=== PATIENT | female | born 1970 | race Caucasian/White ===

== ENCOUNTER 2023-12-14 12:41 | Emergency (ER) | payer MEDICAID ==
[2023-12-14] MEDS ORDERED: ONDANSETRON HCl 4 MG/2 ML SDV IV ONE (12:55)
[2023-12-14] MEDS ORDERED: SODIUM CHLORIDE 0.9% 1,000 ML IV ONE (12:55)
[2023-12-14] MEDS ORDERED: MORPHINE SULFATE 4 MG/ML VIAL IV STA (13:00)
[2023-12-14] MEDS ORDERED: FAMOTIDINE 10MG/ML 2ML SDV IV ONE (13:10)
[2023-12-14] MEDS ORDERED: Pantoprazole Sodium 40 MG VIAL (Protonix) IV ONE (13:10)
[2023-12-14 13:24] LABS: BASO% 0.1 % (0-3); EOS% 0.5 % (0-8); HEMATOCRIT 41.7 % (37.0-47.0); HEMOGLOBIN 13.4 g/dl (12.0-16.0); IMMATURE GRANULOCYTES 0.1 % (0.0-5.0); LYMPH% 7.6 % (15-41); MEAN CELL VOLUME 96.8 fL CALC (80.0-100.0); MEAN CORPUSCULAR HGB 31.1 pG CALC (26.0-32.0); MEAN CORPUSCULAR HGB CONC 32.1 g/dL CAL (32.0-36.0); MONO% 2.8 % (2-13); NEUT# 7.68 thou/uL (2.00-7.15); NEUT% 88.9 % (42-76); RED BLOOD COUNT 4.31 mill/uL (4.20-5.60); RED CELL DISTRI WIDTH 13.4 % (11.5-15.5)
[2023-12-14 13:37] LABS: ALBUMIN 3.8 g/dL (3.2-5.0); ALKALINE PHOSPHATASE 62 u/l (38-126); ANION GAP 10 (6-22 (CALC)); BILIRUBIN, TOTAL 0.7 mg/dL (0.02-1.3); BUN 16 mg/dL (7-17); BUN/CREATININE RATIO 16 (12-20 (CALC)); CARBON DIOXIDE 22 mmol/l (22-30); CHLORIDE 113 mmol/l (95-108); ESTIMATED GFR 68 ML/MIN (>=90 (CALC)); LIPASE 59 u/l (23-300); POTASSIUM 3.7 mmol/l (3.5-5.1); SGOT/AST 26 u/l (14-36); SODIUM 141 mmol/l (137-146); TOTAL PROTEIN 6.7 g/dL (6.3-8.2)
[2023-12-14 13:54] VITALS: BP 152/93
[2023-12-14 14:01] VITALS: BP 138/75
[2023-12-14 14:53] LABS: URINE BILIRUBIN - DIPSTICK Negative (NEGATIVE); URINE BLOOD DIPSTICK Negative (NEGATIVE); URINE COLOR Yellow; URINE GLUCOSE - DIPSTICK Negative (NEGATIVE); URINE KETONE Trace mg/dL (NEGATIVE); URINE LEUK ESTERASE Negative (NEGATIVE); URINE NITRITE - DIPSTICK Negative (Negative); URINE PH 5.5 (4.5-8.0); URINE PROTEIN - DIPSTICK Negative (NEG-TRACE); URINE SPECIFIC GRAVITY 1.025; URINE UROBILINOGEN - DIPSTICK 0.2 E.U./dL (0.2)
[2023-12-14 15:12] VITALS: BP 148/102
[2023-12-14 15:15] VITALS: BP 148/77
[2023-12-14] MEDS ORDERED: PIPERACILLIN Sodium-Tazobactam 3.375 GM in SODIUM CHLORIDE 0.9% 100 ML IV STA (15:50)
[2023-12-14] MEDS ORDERED: AMOX/K CLAV875 M1 PO (15:54)
[2023-12-14] MEDS ORDERED: PROTONIX40 M2 PO (15:54)
[2023-12-14] MEDS ORDERED: ZOFRAN4 MG/TAB PO (15:54)
[2023-12-14 17:05] VITALS: BP 148/77
== END 2023-12-14 17:18 | disposition home or self-care (01) ==
LOC: ED 12:41
PROVIDERS: Family Medicine
DX: I10 Essential (primary) hypertension (principal); E78.5 Hyperlipidemia, unspecified; K57.32 Diverticulitis of large intestine without perforation or abscess without bleeding
CPT/HCPCS: J2470; Q9967